=== PATIENT | female | born 1965 | race African-American/Black ===

== ENCOUNTER 2018-05-26 07:07 | Emergency (ER) | payer OTHER ==
[~2018-05-26] VITALS: Ht 167.6 cm; Wt 86.4 kg
[2018-05-26 07:13] VITALS: Ht 167.6 cm; Wt 86.4 kg
[2018-05-26] MEDS ORDERED: ZOFRAN4 MG PO (07:15)
[2018-05-26] MEDS ORDERED: AMBIEN10 MG (07:15)
[2018-05-26] MEDS ORDERED: LINZESS290 MCG PO (07:15)
[2018-05-26] MEDS ORDERED: ULTRAM50 MG PO (07:16)
[2018-05-26 07:41] LABS: BASOPHILS 0.1 % (0-2); EOSINOPHILS 0.7 % (0-7); HEMATOCRIT 40.7 % (36.0-48.0); HEMOGLOBIN 13.4 g/dL (12-16); IMMATURE GRANULOCYTES 0.3 % (0-5); LYMPHOCYTES 26.7 % (15-50); MCH 30.5 pg (26.0-34.0); MCHC 32.9 g/dL (31.0-37.0); MCV 92.7 fL (80.0-100.0); MEAN PLATELET VOLUME 10.9 fL (7.4-10.4); MONOCYTES 7.5 % (2-11); NEUTROPHILS 64.7 % (40-80); PLATELET COUNT 253 10x3/uL (130-400); RBC 4.39 10x6/uL (4.00-5.40); RDW 13.5 % (11.5-14.5); WBC 7.3 10x3/uL (4.8-10.8)
[2018-05-26 07:42] LABS: APPEARANCE CLEAR (CLEAR); COLOR YELLOW (YELLOW)
[2018-05-26 07:43] LABS: BILIRUBIN NEGATIVE (NEGATIVE); GLUCOSE NEGATIVE (NEGATIVE); KETONE NEGATIVE (NEGATIVE); NITRITE NEGATIVE (NEGATIVE); PROTEIN NEGATIVE (NEGATIVE); SPECIFIC GRAVITY 1.015 (1.005-1.020); UROBILINOGEN NORMAL (NORMAL)
[2018-05-26 07:52] LABS: APTT 29.4 SECONDS (22.8-39.4); INR 1.03 (0.85-1.17)
[2018-05-26 08:05] LABS: ALBUMIN 3.6 g/dL (3.4-5.0); ALKALINE PHOSPHATASE 82 U/L (46-116); ALT (SGPT) 18 U/L (10-68); AMYLASE - SERUM 71 U/L (25-115); BILIRUBIN - DIRECT 0.09 mg/dL (0.00-0.30); BILIRUBIN - INDIRECT 0.43 mg/dL (0.00-1.00); BILIRUBIN - TOTAL 0.52 mg/dL (0.2-1.3); CALC OSMOLALITY 284 mosm/kg (275-300); CALCIUM 8.7 mg/dL (8.5-10.1); CARBON DIOXIDE 26.6 mmol/L (21.0-32.0); CHLORIDE - SERUM 105 mmol/L (98-107); GLUCOSE 128 mg/dL (74-106); LIPASE 160 U/L (73-393); POTASSIUM - SERUM 3.6 mmol/L (3.5-5.1); PROTEIN - SERUM 7.2 g/dL (6.4-8.2); SODIUM 142 mmol/L (136-145); UREA NITROGEN 12 mg/dL (7-18); eGFR NON AFRICAN AMERICAN 61 mL/min (90-120)
[2018-05-26 08:11] LABS: TROPONIN-I < 0.017 ng/mL (0.000-0.060)
[2018-05-26] MEDS ORDERED: GOLYTELY SOLU4000 ML PO (10:39)
[2018-05-26 11:14] VITALS: BP 125/82
== END 2018-05-26 11:15 | disposition home or self-care (01) ==
LOC: D.ER 07:07
PROVIDERS: Family Medicine
DX: K59.00 Constipation, unspecified (principal)

== ENCOUNTER → 2018-05-29 08:57 | Outpatient (CLI) | payer OTHER ==
[2018-05-26 07:13] VITALS: BMI 30.7
[~2018-05-29 08:57] MED LIST: AMBIEN10 MG; GOLYTELY SOLU4000 ML PO; LINZESS290 MCG PO; ULTRAM50 MG PO; ZOFRAN4 MG PO
== END | disposition home or self-care (01) ==
LOC: D.NM 08:57
PROVIDERS: ATTEND Emergency Medicine
DX: R10.11 Right upper quadrant pain (principal)

== ENCOUNTER → 2018-08-03 22:02 | Outpatient (CLI) | payer OTHER ==
[2018-05-26 07:13] VITALS: BMI 30.7
== END | disposition home or self-care (01) ==
LOC: D.MAMMO 07-23 14:45
PROVIDERS: ATTEND Emergency Medicine
DX: Z12.31 Encounter for screening mammogram for malignant neoplasm of breast (principal)